=== PATIENT | female | born 1945 | race Caucasian/White ===

== ENCOUNTER → 2017-03-07 16:55 | Outpatient (CLI) | payer MEDICARE ==
[~2017-03-07 16:55] MED LIST: HYDROCODONE-APA1 TAB PO; LANTUS INSULIN10 ML SC; MULTI-DAY VITAM1 TAB PO; TOPROL XL25 MG; TOPROL XL25 MG PO
== END | disposition home or self-care (01) ==
LOC: D.MAMMO 08:15
DX: Z12.31 Encounter for screening mammogram for malignant neoplasm of breast (principal)